=== PATIENT | female | born 1950 | race Caucasian/White ===

== ENCOUNTER 2016-11-02 21:32 | Emergency (ER) | payer MEDICAID, OTHER ==
[~2016-11-02] VITALS: Ht 152.4 cm; Wt 56.7 kg
[~2016-11-02 21:32] MED LIST: CARV25TA55 PO; DEXL30CA3 PO; FOLI-43 PO; FOLI0.8T2 PO; LISI40TA4 PO; METO-290 PO; NOR10 PO; REPA1TAB3 PO; SIMV20TA2 PO
[2016-11-02 22:45] VITALS: BP_SYST 142
[2016-11-02] MEDS ORDERED: NACL 0.9% 1,000 ML IV ONE ×2 (22:50→23:00)
[2016-11-02] MEDS ORDERED: MORPHINE 2 MG/ML INJ. SYRINGE IVP ONE (23:00)
[2016-11-02 23:10] LABS: BASOPHILS % (AUTO) 0.3 % (0.0-2.0); EOSINOPHILS # (AUTO) 0.1 K/uL (0.0-0.4); EOSINOPHILS % (AUTO) 0.8 % (0.0-4.0); HEMATOCRIT 27.9 % (36-48); HEMOGLOBIN 9.3 g/dL (12.0-16.0); LYMPHOCYTES # (AUTO) 0.7 K/uL (1.0-5.5); LYMPHOCYTES % (AUTO) 6.6 % (20.5-51.5); MEAN CORPUSCULAR HEMOGLOBIN 33 pg (27-31); MEAN CORPUSCULAR HGB CONC 34 % (32-36); MEAN CORPUSCULAR VOLUME 98 fL (79.0-98.0); MONOCYTES # (AUTO) 0.5 K/uL (0.0-1.0); MONOCYTES % (AUTO) 5.3 % (1.7-9.3); NEUTROPHILS # (AUTO) 8.9 K/uL (1.8-7.7); PLATELET COUNT (AUTO) 166 K/uL (130-430); RED BLOOD CELL COUNT(AUTO) 2.86 MIL/uL (4.2-6.2); RED CELL DISTRIBUTION WIDTH 12.7 % (9.0-15.0); WHITE BLOOD COUNT (AUTO) 10.3 K/uL (4.8-10.8)
[2016-11-02 23:16] LABS: CALCIUM 8.5 mg/dL (8.4-11.0)
[2016-11-02 23:17] LABS: CREATININE 7.07 mg/dL (0.55-1.30)
[2016-11-02 23:21] LABS: ALBUMIN 4.1 g/dL (3.4-4.8); TOTAL BILIRUBIN 0.5 mg/dL (0.0-1.0)
[2016-11-02 23:24] LABS: PROTHROMBIN TIME 10.7 SECS (9.5-12.5)
[2016-11-02 23:57] LABS: POTASSIUM 6.3 mmol/L (3.5-5.1)
[2016-11-03] MEDS ORDERED: INSULIN REGULAR, HUMAN 10 UNITS/0.1 ML INJ IVP ONE
[2016-11-03] MEDS ORDERED: SODIUM POLYSTYRENE SULFONATE 15 GM/60 ML UDBTL PO ONE
[2016-11-03] MEDS ORDERED: SODIUM BICARBONATE 8.4% JECT 50 MEQ/50 ML SYRINGE IVP ONE
[2016-11-03] MEDS ORDERED: CALCIUM GLUCONATE 1 GM/10 ML VIAL IVP ONE
[2016-11-03] MEDS ORDERED: SODIUM POLYSTYRENE SULFONATE 15 GM/60 ML UDBTL ONE (00:26)
[2016-11-03 02:15] LABS: CALCIUM 8.6 mg/dL (8.4-11.0); CREATININE 7.21 mg/dL (0.55-1.30); POTASSIUM 5.2 mmol/L (3.5-5.1)
[2016-11-03] MEDS ORDERED: DEXTROSE 50% JECT 50 ML DISP.SYRIN IVP ONE ×2 (02:45)
[2016-11-03 03:10] VITALS: BP_SYST 120
== END 2016-11-03 03:10 | disposition home or self-care (01) ==
LOC: SED 21:32
DX: S82.831A Other fracture of upper and lower end of right fibula, initial encounter for closed fracture (principal); S80.211A Abrasion, right knee, initial encounter; E87.5 Hyperkalemia; I12.0 Hypertensive chronic kidney disease with stage 5 chronic kidney disease or end stage renal disease; N18.6 End stage renal disease; E11.9 Type 2 diabetes mellitus without complications; Z99.2 Dependence on renal dialysis; W01.0XXA Fall on same level from slipping, tripping and stumbling without subsequent striking against object, initial encounter; Y93.89 Activity, other specified; Y92.89 Other specified places as the place of occurrence of the external cause; Y99.8 Other external cause status
CPT/HCPCS: 29125; 36415; 73610; 80048; 80053; 82150; 82962; 83690; 85025; 85610; 85730; 96372; 96374; 96375; 96376; 99285; J0610; J1815; J2270; J7030

== ENCOUNTER 2016-11-15 16:52 | Emergency (ER) | payer MEDICAID, OTHER ==
[~2016-11-15] VITALS: Ht 152.4 cm; Wt 59.0 kg
[2016-11-15 17:02] VITALS: BP_SYST 149
--- NOTE | 2016-11-15 17:20 | NUR ---
Placed in room 05 . Placed on conveyor monitor, blood pressure machine and pulse oximeter. To gown for exam. Side rails up. Report given to Eloy
--- NOTE | 2016-11-15 17:25 | NUR ---
Pt states BS was high before admission, states "BS was about 350" before ER visit. Pt also states "feeling dehydrated". AAOx4, pt responds appropriately to questions. Pt states abd pain in upper abd, pain scale 5/10. Pt states having nausea, 2 episodes of vomiting. Pt denies diarrhea. No structural abnormalities noted to abdomen. Abd round, non-tender. Pt denies any other complaints.
--- NOTE | 2016-11-15 17:26 | NUR ---
ER Dr. Alas at bedside examining patient.
[2016-11-15] MEDS ORDERED: KETOROLAC TROMETHAMINE 30 MG VIAL IVP ONE (17:30)
[2016-11-15] MEDS ORDERED: ONDANSETRON HCL 4 MG/2 ML VIAL IVP ONE (17:30)
[2016-11-15] MEDS ORDERED: NACL 0.9% 1,000 ML IV ONE (17:30)
[2016-11-15 18:12] LABS: CALCIUM 8.5 mg/dL (8.4-11.0); POTASSIUM 4.4 mmol/L (3.5-5.1)
[2016-11-15 18:13] LABS: BASOPHILS % (AUTO) 0.5 % (0.0-2.0); CREATININE 4.07 mg/dL (0.55-1.30); EOSINOPHILS # (AUTO) 0.1 K/uL (0.0-0.4); EOSINOPHILS % (AUTO) 1.4 % (0.0-4.0); HEMATOCRIT 26.9 % (36-48); HEMOGLOBIN 9.3 g/dL (12.0-16.0); LYMPHOCYTES # (AUTO) 0.7 K/uL (1.0-5.5); LYMPHOCYTES % (AUTO) 12.2 % (20.5-51.5); MEAN CORPUSCULAR HEMOGLOBIN 33 pg (27-31); MEAN CORPUSCULAR HGB CONC 35 % (32-36); MEAN CORPUSCULAR VOLUME 96 fL (79.0-98.0); MONOCYTES # (AUTO) 0.5 K/uL (0.0-1.0); MONOCYTES % (AUTO) 9.6 % (1.7-9.3); NEUTROPHILS # (AUTO) 4.2 K/uL (1.8-7.7); NEUTROPHILS % (AUTO) 76.3 % (40.0-70.0); PLATELET COUNT (AUTO) 178 K/uL (130-430); RED CELL DISTRIBUTION WIDTH 13.1 % (9.0-15.0); WHITE BLOOD COUNT (AUTO) 5.5 K/uL (4.8-10.8)
[2016-11-15 18:17] LABS: ALBUMIN 3.8 g/dL (3.4-4.8); TOTAL BILIRUBIN 0.4 mg/dL (0.0-1.0); TOTAL PROTEIN, SERUM 7.7 g/dL (6.4-8.3)
[2016-11-15] MEDS ORDERED: INSULIN REGULAR, HUMAN 10 UNITS/0.1 ML INJ IVP ONE (18:45)
--- NOTE | 2016-11-15 19:19 | NUR ---
BS recheck was 191, no insulin coverage per MD order.
[2016-11-15 19:39] VITALS: BP_SYST 149
--- NOTE | 2016-11-15 19:39 | NUR ---
Patient given written and verbal discharge instructions in mos[place] and verbalizes understanding. ER MD discussed with patient the results and treatment provided. Patient in stable condition. ID arm band removed. Patient educated on pain management and to follow up with PMD. Pain Scale 0/10. Opportunity for questions provided and answered.
== END 2016-11-15 19:39 | disposition home or self-care (01) ==
LOC: SED 16:52
DX: E11.65 Type 2 diabetes mellitus with hyperglycemia (principal); R10.13 Epigastric pain; I10 Essential (primary) hypertension; Z79.899 Other long term (current) drug therapy
CPT/HCPCS: 36415; 80053; 82962; 83690; 85025; 96361; 96374; 96375; 99284; J1885; J2405; J7030

== ENCOUNTER 2016-11-26 19:22 | Emergency (ER) | payer MEDICAID, OTHER ==
[~2016-11-26] VITALS: Ht 152.4 cm; Wt 59.0 kg
[2016-11-26 19:50] VITALS: BP_SYST 163
--- NOTE | 2016-11-26 19:50 | NUR ---
Placed in room 8 . oximeter. To gown for exam. Side rails up.
--- NOTE | 2016-11-26 20:10 | NUR ---
Patient presents to ED a/o x 4 with complaint of sore throat x 2 days. Patient reports non-productive cough with increasing pain prompting visit. States she has sharp 6/10 pain to throat and chest with each coughing episode. Reports generalized malaise x 2 days. Denies SOB. Denies fever. Denies N/V/D. Does not appear in immediate distress at this time. Son at bedside. Will continue to monitor.
--- NOTE | 2016-11-26 20:30 | NUR ---
ED MD Roberson at bedside for medical evaluation.
[2016-11-26] MEDS ORDERED: AMOXICILLIN 500 MG CAPSULE PO ONE (21:00)
[2016-11-26] MEDS ORDERED: ACETAMINOPHEN/CODEINE 300 MG-30 MG TABLET PO ONE (21:00)
[2016-11-26 21:10] VITALS: BP_SYST 163
--- NOTE | 2016-11-26 21:10 | NUR ---
Patient given written and verbal discharge instructions and verbalizes understanding. ER MD discussed with patient the results and treatment provided. Patient in stable condition. ID arm band removed. Rx of tylenol with codeine and amoxicillin given. Patient educated on pain management and to follow up with PMD. Pain Scale 2/10. Opportunity for questions provided and answered.
== END 2016-11-26 21:10 | disposition home or self-care (01) ==
LOC: SED 19:22
DX: J02.9 Acute pharyngitis, unspecified (principal); I10 Essential (primary) hypertension; E11.9 Type 2 diabetes mellitus without complications
CPT/HCPCS: 99283